=== PATIENT | female | born 1995 | race Two or more races ===

== ENCOUNTER 2017-02-04 12:24 | Emergency (ER) | payer OTHER ==
[~2017-02-04] VITALS: Ht 152.4 cm; Wt 52.2 kg
[2017-02-04 12:27] VITALS: BP 119/80
[2017-02-04] MEDS ORDERED: IBUPROFEN 400 MG TABLET ONE (12:55)
[2017-02-04] MEDS ORDERED: IBUPROFEN 400 MG TABLET PO ONE (13:00)
== END 2017-02-04 13:55 | disposition home or self-care (01) ==
LOC: ER 12:27
DX: S62.615A Displaced fracture of proximal phalanx of left ring finger, initial encounter for closed fracture (principal); S46.911A Strain of unspecified muscle, fascia and tendon at shoulder and upper arm level, right arm, initial encounter; J45.909 Unspecified asthma, uncomplicated; F17.200 Nicotine dependence, unspecified, uncomplicated; Y08.89XA Assault by other specified means, initial encounter; Y93.89 Activity, other specified; Y92.69 Other specified industrial and construction area as the place of occurrence of the external cause; Y99.0 Civilian activity done for income or pay
CPT/HCPCS: 73130-TC; A4606; Z7610

== ENCOUNTER 2018-08-06 21:29 | Emergency (ER) | payer SELFPAY ==
--- NOTE | 2018-08-06 21:45 | NUR ---
CALLED NO ANSWER IN WAITING ROOM.
--- NOTE | 2018-08-06 22:04 | NUR ---
CALLED, NO ANSWER IN WAITING ROOM.
--- NOTE | 2018-08-06 22:23 | NUR ---
CALLED NO ANSWER IN WAITING ROOM.
== END 2018-08-06 22:24 | disposition left against medical advice (07) ==
LOC: ER 21:31
DX: Z53.21 Procedure and treatment not carried out due to patient leaving prior to being seen by health care provider (principal)